=== PATIENT | male | born 1965 | race Caucasian/White ===

== ENCOUNTER 2016-09-28 09:38 | Emergency (ER) | payer OTHER ==
[2016-09-28 09:50] VITALS: BP 102/56; PULSE 87; TEMP 97.9; BMI 40.3
--- NOTE | 2016-09-28 10:46 | PDOC ---
History of Present Illness - General Chief Complaint: Pain Stated Complaint: PAIN Time Seen by Provider: 09/28/16 10:45 History Source: Patient Exam Limitations: No Limitations - History of Present Illness Initial Comments: CHIEF COMPLAINT: 51 y/o afebrile male with PMH NIDDM, peripheral neuropathy, 3 left hip replacements c/o left hip pain since yesterday. HISTORY OF PRESENT ILLNESS: The patient states he was the passenger in a car for a few hours yesterday. Last night he had some hip pain for which he took Vicodin which didn't help. Today he woke up with worsened pain and is concerned there is a problem with his hip replacement. He states he cannot move his left leg nor walk. He denies fall, trauma to area, numbness/tingling in his left LE. Vital signs on arrival are within normal limits. REVIEW OF SYSTEMS: GENERAL/CONSTITUTIONAL: No fever/chills. No weakness. No weight change. HEAD, EYES, EARS, NOSE AND THROAT: No change in vision. No ear pain or discharge. No sore throat. CARDIOVASCULAR: No chest pain or shortness of breath. RESPIRATORY: No cough, wheezing, or hemoptysis. GASTROINTESTINAL: No abd pain, nausea, vomiting, diarrhea. GENITOURINARY: No dysuria, frequency, or change in urination. MUSCULOSKELETAL: +left hip pain. No neck or back pain. SKIN: No rash or easy bruising. NEUROLOGIC: No headache, vertigo, loss of consciousness, or loss of sensation. PHYSICAL EXAM: GENERAL: The patient is awake, alert, and fully oriented, in no acute distress. He is wheeled in a wheelchair. HEAD: Normal with no signs of trauma. BACK: No midline lumbar spine TTP or step offs. Pain with palpation of left buttock/piriformis region. EXTREMITIES: Pt refuses left leg ranging. NEUROLOGICAL: Normal speech. Gait not assessed in the ER. CN II-XII grossly intact. No pain with palpation of left greater trochanter. No apparent leg leg discrepancy. PSYCH: Normal mood, normal affect. SKIN: Warm, dry, normal turgor, no rashes or lesions noted. Past History - Past Medical History Allergies/Adverse Reactions: Allergies Allergy/AdvReac Type Severity Reaction Status Date / Time No Known Drug Allergies Allergy Verified 09/28/16 09:45 Home Medications: Ambulatory Orders Zolpidem Tartrate [Ambien] 10 mg PO HS PRN 04/02/12 Gabapentin [Neurontin] 300 mg PO TID 08/03/13 Glipizide 5 mg PO BID 08/03/13 Metformin HCl [Glucophage] 1,000 mg PO BID 08/03/13 Sertraline HCl [Zoloft -] 100 mg PO DAILY 08/03/13 Cyclobenzaprine HCl [Flexeril -] 10 mg PO TID #21 tablet 07/15/15 Ibuprofen [Motrin -] 600 mg PO QID #28 tablet 09/23/15 COPD: (H/O SLEEP APNEA-SX) Diabetes: Yes HTN: Yes Hypercholesterolemia: Yes Psychiatric Problems: Yes (ANXIETY) - Surgical History Abdominal Surgery: Yes (abd hernia) Cardiac Surgery: Yes (no stent angio) Orthopedic Surgery: Yes (HIP REPLACEMENT LTX3) - Immunization History Immunization Up to Date: Yes - Psycho/Social/Smoking Cessation Hx Anxiety: No Suicidal Ideation: No Smoking Status: No Smoking History: Current some day smoker Have you smoked in the past 12 months: Yes Number of Cigarettes Smoked Daily: 0 Cigars Per Day: 1 Information on smoking cessation initiated: Yes 'Breaking Loose' booklet given: 09/28/16 Hx Alcohol Use: No Drug/Substance Use Hx: No Substance Use Type: None Hx Substance Use Treatment: No *Physical Exam - Vital Signs Last Vital Signs Temp Pulse Resp BP Pulse Ox 97.9 F 87 18 102/56 100 09/28/16 09:47 09/28/16 09:47 09/28/16 09:47 09/28/16 09:47 09/28/16 09:47 Medical Decision Making - Medical Decision Making A/P: 51 y/o afebrile male with left hip pain s/p long car ride yesterday. Suspect sciatica/piriformis syndrome. However, given his history will send for hip xray. Will give PO ibuprofen and valium in FT. Left hip/pelvis xray IMPRESSION: No acute fracture. No change since prior study. The patient was given his results. He states the medication made no difference to his pain. Will give crutches and suggested he continue taking his narcotic pain medication at home and add Motrin. Instructed him to call Dr. Beltre for a physical therapy prescription and his orthopedic doctor for a follow up appointment as soon as possible. Demonstrated some stretches and suggested he perform them hourly at home until he gets to physical therapy. Instructed him to return to the ER immediately with any worsening or concerning symptoms. The patient verbalizes understanding of all instructions, has no further questions and is awaiting discharge. *DC/Admit/Observation/Transfer Diagnosis at time of Disposition: Hip pain, left Sciatica Qualifiers: Laterality: left Qualified Code(s): M54.32 - Sciatica, left side Piriformis syndrome Qualifiers: Laterality: left Qualified Code(s): G57.02 - Lesion of sciatic nerve, left lower limb - Discharge Dispostion Disposition: HOME Condition at time of disposition: Good - Referrals Referrals: Elver Beltre MD [Primary Care Provider] - (Call today for physical therapy prescription) - Patient Instructions Printed Discharge Instructions: DI for Sciatica, How To Perform RICE (Rest, Ice , Compress, Elevate), How to Use Crutches Additional Instructions: Discharge Instructions: -Use crutches for comfort -The xrays of your hip did not show any breaks or problems with your hip replacement -Please continue taking your pain medication at home as you normally would; Add motrin to help with pain -Call Dr. Beltre and your Orthopedic doctor today for prescriptions for Physical Therapy and an MRI. -Return to the ER with any worsening or concerning symptoms
[2016-09-28] MEDS ORDERED: diazePAM 5 MG TABLET PO ONE (10:52)
[2016-09-28] MEDS ORDERED: IBUPROFEN 400 MG TABLET (FP) PO ONE ×2 (10:52→10:54)
[2016-09-28] MEDS ORDERED: diazePAM 5 MG TABLET ONE (10:55)
== END 2016-09-28 12:51 | disposition home or self-care (01) ==
LOC: JERFT 09:38
DX: M54.32 Sciatica, left side (principal); G57.02 Lesion of sciatic nerve, left lower limb; E11.42 Type 2 diabetes mellitus with diabetic polyneuropathy; Z79.84 Long term (current) use of oral hypoglycemic drugs; I10 Essential (primary) hypertension; E78.00 Pure hypercholesterolemia, unspecified
CPT/HCPCS: 73523-TC; 99281-25

== ENCOUNTER 2017-07-25 14:30 | Emergency (ER) | payer OTHER ==
[2017-07-25 14:51] VITALS: BP 150/80; PULSE 95; TEMP 97; BMI 36.3
--- NOTE | 2017-07-25 15:41 | PDOC ---
Suture Removal/Wound Check HPI - History of Present Illness Chief Complaint: Injury Stated Complaint: LACERATION Time Seen by Provider: 07/25/17 15:05 History Source: Yes: Patient Exam Limitations: Yes: No Limitations (R index finger laceration sustained with a knife while washing dishes, UTD with tetanus) Past History - Travel Traveled outside of the country in the last 30 days: No Close contact w/someone who was outside of country & ill: No - Past Medical History Allergies/Adverse Reactions: Allergies Allergy/AdvReac Type Severity Reaction Status Date / Time No Known Drug Allergies Allergy Verified 07/25/17 14:49 Home Medications: Ambulatory Orders Zolpidem Tartrate [Ambien] 10 mg PO HS PRN 04/02/12 Gabapentin [Neurontin] 300 mg PO TID 08/03/13 Glipizide 5 mg PO BID 08/03/13 Metformin HCl [Glucophage] 1,000 mg PO BID 08/03/13 Sertraline HCl [Zoloft -] 100 mg PO DAILY 08/03/13 COPD: No (H/O SLEEP APNEA-SX) Diabetes: Yes HTN: Yes Hypercholesterolemia: Yes Psychiatric Problems: Yes (ANXIETY) - Surgical History Abdominal Surgery: Yes (abd hernia) Cardiac Surgery: Yes (no stent angio) Orthopedic Surgery: Yes (HIP REPLACEMENT LTX3) - Immunization History Immunization Up to Date: Yes - Suicide/Smoking/Psychosocial Hx Smoking Status: No Smoking History: Never smoked Have you smoked in the past 12 months: Yes Number of Cigarettes Smoked Daily: 0 Cigars Per Day: 1 Information on smoking cessation initiated: No 'Breaking Loose' booklet given: 09/28/16 Hx Alcohol Use: No Drug/Substance Use Hx: No Substance Use Type: None Hx Substance Use Treatment: No Suture Removal/Wound Check PE - Physical Exam Laceration/Wound Check Symptoms: denies: Numbness, Weakness Location of Laceration/Wound: right: Finger (R index finger) *Review of Systems - Review of Systems Integumentary: Yes: Other (R index finger laceration) Neurological: No: Numbness Procedures - Laceration/Wound Repair Right Upper Hand 2nd digit Wound Length: to 2.5 cm Wound Explored: clean, no foreign body present Wound's Depth, Shape: superficial, flap Irrigated w/ Saline: Yes Betadine Prep: Yes Wound Repaired With: Dermabond Sterile Dressing Applied: Yes Medical Decision Making - Medical Decision Making 07/25/17 15:42 52y/o M with h/o DM, R hand dominant p/w R index finger laceration sustained 5hrs [employer] while washing dishes. PT reports he cut it with a knift, UTD wth tetanus. No finger weakness or loss of sensation plan: PE consistent with flap superficial laceration, FROM. skin closed with dermabond wound dressed s/s of infection discussed keep area dry *DC/Admit/Observation/Transfer Diagnosis at time of Disposition: Laceration - Discharge Dispostion Disposition: HOME Condition at time of disposition: Stable Admit: No - Referrals Referrals: Elver Beltre MD [Primary Care Provider] - - Patient Instructions Printed Discharge Instructions: DI for Laceration Repair With Dermabond Additional Instructions: I discussed the physical exam findings, ancillary test results and final diagnoses with the patient. I answered all of the patient's questions. The patient was satisfied with the care received and felt comfortable with the discharge plan and treatment plan. The patient will call their primary care physician within 24 hours to arrange follow-up and will return to the Emergency Department with any new, persistant or worsening symptoms. - Post Discharge Activity
== END 2017-07-25 15:40 | disposition home or self-care (01) ==
LOC: JERFT 14:30 → JER 14:30 → JERFT 15:40
PROC: 0HQFXZZ Repair Right Hand Skin, External Approach (ICD-10-PCS; principal; 2017-07-25)
DX: S61.210A Laceration without foreign body of right index finger without damage to nail, initial encounter (principal); W26.0XXA Contact with knife, initial encounter; Y93.G1 Activity, food preparation and clean up; Y92.030 Kitchen in apartment as the place of occurrence of the external cause; Y99.8 Other external cause status; I10 Essential (primary) hypertension; Z98.61 Coronary angioplasty status; E11.9 Type 2 diabetes mellitus without complications; E78.00 Pure hypercholesterolemia, unspecified; G47.39 Other sleep apnea; F41.9 Anxiety disorder, unspecified; Z96.642 Presence of left artificial hip joint
CPT/HCPCS: 12011; 99281-25

== ENCOUNTER 2019-05-27 12:54 | Emergency (ER) | payer OTHER ==
[2019-05-27 13:26] VITALS: BP 118/68; PULSE 95; TEMP 98; BMI 37.1
[2019-05-27] MEDS ORDERED: KETOROLAC TROMETHAMINE 30 MG/1 ML VIAL IM ONE (13:41)
[2019-05-27] MEDS ORDERED: KETOROLAC TROMETHAMINE 30 MG/1 ML VIAL ONE (13:43)
--- NOTE | 2019-05-27 13:50 | PDOC ---
History of Present Illness - General Chief Complaint: Pain, Acute Stated Complaint: RT SHOULDER PAIN Time Seen by Provider: 05/27/19 13:34 History Source: Patient Exam Limitations: No Limitations - History of Present Illness Initial Comments: 05/27/19 13:45 Patient is a 54-year-old male who presents to the ED with complaint of right shoulder pain that started 2-3 weeks ago. The patient states that it got worse after he had a fall in his bedroom yesterday. He states he tripped and landed on an outstretched arm. He has difficulty raising his arm up above his head. He is having trouble reaching behind his back. He denies any numbness or tingling. The patient states that he is on chronic pain management for multiple orthopedic issues and takes 10 mg of oxycodone twice daily. He states he has been on the pain medication for a long time. He has not taken any anti- inflammatories for his shoulder pain. He has a history of diabetes but denies any allergies to medicines. Past History - Past Medical History Allergies/Adverse Reactions: Allergies Allergy/AdvReac Type Severity Reaction Status Date / Time No Known Drug Allergies Allergy Verified 05/27/19 13:26 Home Medications: Ambulatory Orders Zolpidem Tartrate [Ambien] 10 mg PO HS PRN 04/02/12 Gabapentin [Neurontin] 300 mg PO TID 08/03/13 Glipizide 5 mg PO BID 08/03/13 Metformin HCl [Glucophage] 1,000 mg PO BID 08/03/13 Sertraline HCl [Zoloft -] 100 mg PO DAILY 08/03/13 Ibuprofen [Motrin -] 600 mg PO TID PRN #21 tablet 05/27/19 COPD: No (H/O SLEEP APNEA-SX) Diabetes: Yes HTN: Yes Hypercholesterolemia: Yes Psychiatric Problems: Yes (ANXIETY) - Surgical History Abdominal Surgery: Yes (abd hernia) Cardiac Surgery: Yes (no stent angio) Orthopedic Surgery: Yes (HIP REPLACEMENT LTX3) - Immunization History Immunization Up to Date: Yes - Psycho Social/Smoking Cessation Hx Smoking Status: No Smoking History: Former smoker Have you smoked in the past 12 months: No Number of Cigarettes Smoked Daily: 0 Cigars Per Day: 1 Information on smoking cessation initiated: No 'Breaking Loose' booklet given: 09/28/16 Hx Alcohol Use: No Drug/Substance Use Hx: No Substance Use Type: None Hx Substance Use Treatment: No Review of Systems - Review of Systems Comments:: 05/27/19 13:47 - Review of Systems Able to Perform ROS?: Yes Constitutional: No: Fever, Chills, Loss of Appetite, Night Sweats, Weakness HEENTM: No: Eye Pain, Vision changes, Ear Pain, Throat Pain, Throat Swelling, Mouth Pain, Difficulty Swallowing Respiratory: No: Cough, Shortness of Breath, Wheezing, Sputum Production Cardiac (ROS): No: Chest Pain, Chest Tightness, Palpitations, Irregular Heart Beat, Edema ABD/GI: No: Nausea, Vomiting, Abdominal Pain, Diarrhea Musculoskeletal: No: Muscle Pain, Back Pain, Muscle Weakness, Neck Pain; Positive R shoulder pain Integumentary: No: Lesions, Rash Neurological: No: Headache, Numbness, Tingling, Weakness, Speech Difficulties *Physical Exam - Vital Signs Last Vital Signs Temp Pulse Resp BP Pulse Ox 98.0 F 95 H 16 118/68 100 05/27/19 13:23 05/27/19 13:23 05/27/19 13:23 05/27/19 13:23 05/27/19 13:23 - Physical Exam 05/27/19 13:48 - Physical Exam General Appearance: Nourished, Appropriately Dressed, No Distress Neck: Supple, No Lymphadenopathy (R), No Lymphadenopathy (L), No Rigidity, No Decreased range of motion Respiratory/Chest: Lungs Clear, Normal Breath Sounds. No Respiratory Distress, No Accessory Muscle Use Cardiovascular: Regular Rhythm, Regular Rate, S1, S2 Musculoskeletal: Normal Inspection. Right shoulder with no significant reproducible tenderness to palpation. No step-off. Forward flexion to 45 degrees actively. Internal rotation to the right hip. Passive forward flexion to 110 degrees actively. Extremity: Normal Capillary Refill, Normal Inspection Integumentary: Normal Color, Dry. No Rash Neurologic: water pumper II-XII NML intact, Fully Oriented, Alert, Normal Mood/Affect, Normal Response ED Treatment Course - RADIOLOGY Radiology Studies Ordered: Category Date Time Status SHOULDER-RIGHT [RAD] Stat Radiology 05/27/19 13:41 Ordered - Medications Given in the ED: ED Medications Discontinued Medications Generic Name Dose Route Start Last Admin Trade Name Freq PRN Reason Stop Dose Admin Ketorolac Tromethamine 30 mg 05/27/19 13:41 05/27/19 13:42 Toradol Injection - IM 05/27/19 13:42 30 mg ONCE ONE Administration Medical Decision Making - Medical Decision Making 05/27/19 13:49 Assessment: Patient is a 54-year-old male with right shoulder pain. Plan: -Right shoulder x-ray ordered to rule out fracture -Toradol IM ordered -Will reassess 05/27/19 14:39 Patient's x-ray is read as no acute pathology. He does have significant AC OA with osteophytic bone spurring appreciated. There is a sclerotic lesion appreciated at the medial aspect of the humeral head which should be further evaluated. I will give the patient orthopedic follow-up for further evaluation and treatment. He understands and agrees with this treatment plan and Motrin will be sent to his pharmacy. The patient is stable for discharge. Discharge - Discharge Information Problems reviewed: Yes Clinical Impression/Diagnosis: Right shoulder pain Qualifiers: Chronicity: acute Qualified Code(s): M25.511 - Pain in right shoulder Condition: Stable Disposition: HOME - Additional Discharge Information Prescriptions: Ibuprofen [Motrin -] 600 mg PO TID PRN #21 tablet PRN Reason: pain - Follow up/Referral Referrals: Elver Beltre MD [Primary Care Provider] - Eliezer Mckee MD [Staff Physician] - 1 week - Patient Discharge Instructions Patient Printed Discharge Instructions: DI for Shoulder Pain Additional Instructions: Ice your shoulder to help with pain and swelling. Take the Motrin as prescribed to help with pain and swelling but take with food. Follow-up with orthopedics within 1 to 2 weeks for repeat evaluation. You may benefit from a steroid injection in your shoulder for the pain and physical therapy. You may require an MRI for further evaluation. - Post Discharge Activity
== END 2019-05-27 14:47 | disposition home or self-care (01) ==
LOC: JER 12:54 → JERFT 12:54
PROC: 3E0233Z Introduction of Anti-inflammatory into Muscle, Percutaneous Approach (ICD-10-PCS; principal; 2019-05-27)
DX: M25.511 Pain in right shoulder (principal); I10 Essential (primary) hypertension; E78.00 Pure hypercholesterolemia, unspecified; E11.9 Type 2 diabetes mellitus without complications; Z79.84 Long term (current) use of oral hypoglycemic drugs; F41.9 Anxiety disorder, unspecified; Z98.61 Coronary angioplasty status
CPT/HCPCS: 73030-TC-RT-FY; 96372; 99284-25

== ENCOUNTER 2020-07-30 15:44 | Observation (INO) | payer OTHER ==
[2020-07-30] MEDS ORDERED: SODIUM CHLORIDE 1,000 ML IV STA (17:53)
[2020-07-30] MEDS ORDERED: ATORVASTATIN CA 80 MG TABLET (FP) PO ONE (18:39)
[2020-07-30] MEDS ORDERED: ASPIRIN 325 MG TABLET PO ONE (18:39)
[2020-07-30 18:42] LABS: BASO % 0.9 % (0-2.0); EOS % 1.7 % (0-4.5); HEMATOCRIT 38.4 % (35.4-49); HEMOGLOBIN 13.2 GM/dL (11.7-16.9); LYMPH % 23.5 % (8-40); MCH 28.9 pg (25.7-33.7); MCHC 34.3 g/dl (32.0-35.9); MEAN CELL VOLUME 84.2 fl (80-96); MEAN PLT VOLUME 7.9 fl (7.5-11.1); MONO % 12.2 % (3.8-10.2); NEUT % 61.7 % (42.8-82.8); PLATELET COUNT 217 K/MM3 (134-434); RBC 4.56 M/mm3 (4.00-5.60); RDW 13.4 % (11.9-15.9); WHITE BLOOD COUNT 6.9 K/mm3 (4.0-10.0)
[2020-07-30 19:00] LABS: CHLORIDE 102 mmol/L (98-107); SODIUM 136 mmol/L (136-145)
[2020-07-30 19:03] LABS: ALBUMIN 3.9 g/dl (3.4-5.0); ANION GAP 6 MMOL/L (8-16); BLOOD UREA NITROGEN 16.9 mg/dL (7-18); CALCIUM 9.6 mg/dL (8.5-10.1); CO2 28 mmol/L (21-32); GLUCOSE,RANDOM 118 mg/dL (74-106); MAGNESIUM 1.9 mg/dL (1.8-2.4)
[2020-07-30 19:06] LABS: CHOLESTEROL 113 mg/dL (50-200); CREATININE 1.1 mg/dL (0.55-1.3); PHOSPHOROUS 3.8 mg/dL (2.5-4.9); SGOT/AST 13 U/L (15-37); SGPT/ALT 32 U/L (13-61); TRIGLYCERIDES 61 mg/dL (0-150)
[2020-07-30 19:07] LABS: BILIRUBIN,TOTAL 0.9 mg/dL (0.2-1); LDL CHOLESTEROL (ONLY SJRH) 40 mg/dL (5-100); TOT PROT 6.8 g/dl (6.4-8.2)
[2020-07-30 19:08] LABS: ALK PHOS 73 U/L (45-117)
[2020-07-30 19:09] LABS: HDL CHOLESTEROL 63 mg/dL (40-60)
[2020-07-30] MEDS ORDERED: ATORVASTATIN CA 80 MG TABLET (FP) ONE (19:53)
[2020-07-30] MEDS ORDERED: ACETAMINOPHEN 1000 MG/100 ML VIAL (NON FORMULARY) IVPB ONE ×2 (19:59→20:11)
[2020-07-30] MEDS ORDERED: ACETAMINOPHEN 500 MG TABLET (FP) PO ONE (20:06)
[2020-07-30] MEDS ORDERED: ACETAMINOPHEN INJECTION 100 ML IVPB ONE (20:11)
[2020-07-30 22:27] LABS: PH,URINE 6.5 (5.0-8.0); URINE APPEARANCE CLEAR; URINE BILIRUBIN NEGATIVE (NEGATIVE); URINE COLOR YELLOW; URINE GLUCOSE (UA) NEGATIVE (NEGATIVE); URINE KETONE NEGATIVE (NEGATIVE); URINE LEUK ESTERASE NEGATIVE (NEGATIVE); URINE NITRITE NEGATIVE (NEGATIVE); URINE PROTEIN NEGATIVE (NEGATIVE); URINE UROBILINOGEN 0.2 mg/dL (0.2-1.0)
[2020-07-31] MEDS ORDERED: QUEtiapine FUMARATE 100 MG TABLET (FP) PO SCH (00:01)
[2020-07-31] MEDS ORDERED: traZODone HCL 100 MG TABLET (FP) PO SCH ×2 (00:01→22:00)
[2020-07-31] MEDS ORDERED: ATORVASTATIN CA 80 MG TABLET (FP) ONE (00:19)
[2020-07-31] MEDS ORDERED: QUEtiapine FUMARATE 100 MG TABLET (FP) ONE (00:20)
[2020-07-31] MEDS ORDERED: MELATONIN 5 MG TABLETS PO PRN (00:30)
[2020-07-31] MEDS ORDERED: oxyCODONE HCL 5 MG TABLET PO PRN (01:26)
[2020-07-31] MEDS ORDERED: ACETAMINOPHEN 325 MG TABLET (FP) PO PRN ×2 (01:26→01:28)
[2020-07-31] MEDS: LORazepam 1 MG TABLET PO PRN ×2 (02:00→10:15)
[2020-07-31 03:34] VITALS: BMI 29.0
[2020-07-31 07:01] LABS: BASO % 0.5 % (0-2.0); EOS % 2.9 % (0-4.5); HEMATOCRIT 37.1 % (35.4-49); LYMPH % 25.3 % (8-40); MCH 29.3 pg (25.7-33.7); MEAN CELL VOLUME 83.7 fl (80-96); MEAN PLT VOLUME 7.7 fl (7.5-11.1); MONO % 12.8 % (3.8-10.2); NEUT % 58.5 % (42.8-82.8); PLATELET COUNT 193 K/MM3 (134-434); RBC 4.43 M/mm3 (4.00-5.60); RDW 13.5 % (11.9-15.9); WHITE BLOOD COUNT 5.5 K/mm3 (4.0-10.0)
[2020-07-31 07:15] LABS: ALBUMIN 3.8 g/dl (3.4-5.0); CALCIUM 9.4 mg/dL (8.5-10.1)
[2020-07-31 07:16] LABS: BLOOD UREA NITROGEN 13.8 mg/dL (7-18); MAGNESIUM 1.8 mg/dL (1.8-2.4)
[2020-07-31 07:19] LABS: PHOSPHOROUS 3.9 mg/dL (2.5-4.9)
[2020-07-31 07:20] LABS: BILIRUBIN,TOTAL 1.4 mg/dL (0.2-1); TOT PROT 6.2 g/dl (6.4-8.2)
[2020-07-31] MEDS ORDERED: ENOXAPARIN NA (PORCINE) 40 MG/0.4 ML DISP.SYRIN SQ SCH (10:00)
[2020-07-31] MEDS ORDERED: BUPROPION HCL 450 MG PO SCH (10:00)
[2020-07-31] MEDS ORDERED: ASPIRIN COATED 81 MG TABLET.EC PO SCH (10:00)
[2020-07-31] MEDS ORDERED: LISINOPRIL 5 MG TABLET PO SCH (10:00)
[2020-07-31] MEDS ORDERED: GABAPENTIN 300 MG CAPSULE PO SCH (14:00)
[2020-07-31 14:05] VITALS: BP 123/62; PULSE 97; TEMP 98.4
[2020-07-31] MEDS ORDERED: ATORVASTATIN CA 80 MG TABLET (FP) PO SCH (22:00)
[2020-07-31] MEDS ORDERED: QUEtiapine FUMARATE 50 MG TABLET PO SCH (22:00)
[2020-08-01] MEDS ORDERED: DULoxetine HCL 30 MG CAPSULE.DR PO SCH (10:00)
== END 2020-07-31 17:57 | disposition home or self-care (01) | DRG 312 ==
LOC: JER 15:44 → UNDOADMOB 20:27 → INTOOBSV 20:27 → JERBED 20:27 → J4W 07-31 00:59 → JERBED 07-31 09:57 → J4W 07-31 09:57 → OBSVTOIN 07-31 17:25 → INTOOBSV 07-31 17:25
PROVIDERS: ADMIT Hospitalist; ATTEND Nurse Practitioner Acute Care
DX: R55 Syncope and collapse (principal); F32.9 Major depressive disorder, single episode, unspecified; F41.9 Anxiety disorder, unspecified; E11.9 Type 2 diabetes mellitus without complications; M54.5 Low back pain; Z79.84 Long term (current) use of oral hypoglycemic drugs; G47.00 Insomnia, unspecified; E78.5 Hyperlipidemia, unspecified; G89.29 Other chronic pain; Z20.822 Contact with and (suspected) exposure to COVID-19
CPT/HCPCS: 36415; 70450-TC; 70551-TC; 71045-TC-FY; 72170-TC-FY; 73562-TC-LT-FY; 73562-TC-RT-FY; 80053; 80061; 81003; 82550; 83036; 83721; 83735; 84100; 84436; 84443; 84484; 85025; 93005; 93010; 93306-TC; 93880-TC; 99285-25; C9803; G0378; J0131; U0003; U0005

== ENCOUNTER 2020-08-10 09:59 | Emergency (ER) | payer OTHER ==
[2020-08-10 10:12] VITALS: TEMP 98; BMI 27.4
[2020-08-10 11:48] LABS: BASO % 0.7 % (0-2.0); HEMATOCRIT 38.6 % (35.4-49); HEMOGLOBIN 13.6 GM/dL (11.7-16.9); LYMPH % 17.8 % (8-40); MCH 29.9 pg (25.7-33.7); MCHC 35.3 g/dl (32.0-35.9); MEAN CELL VOLUME 84.6 fl (80-96); MEAN PLT VOLUME 7.6 fl (7.5-11.1); MONO % 9.8 % (3.8-10.2); NEUT % 68.7 % (42.8-82.8); PLATELET COUNT 234 K/MM3 (134-434); RBC 4.56 M/mm3 (4.00-5.60); RDW 14.4 % (11.9-15.9); WHITE BLOOD COUNT 6.4 K/mm3 (4.0-10.0)
[2020-08-10 11:49] LABS: ALBUMIN 3.8 g/dl (3.4-5.0); BLOOD UREA NITROGEN 15.8 mg/dL (7-18); CALCIUM 8.7 mg/dL (8.5-10.1)
[2020-08-10 11:54] LABS: BILIRUBIN,TOTAL 0.7 mg/dL (0.2-1); TOT PROT 6.6 g/dl (6.4-8.2)
[2020-08-10 12:24] LABS: EPI CELLS 4 /uL (0-25.1); HYALINE CASTS 0 /uL (0-3.1); PH,URINE 6.5 (5.0-8.0); URINE APPEARANCE CLOUDY; URINE BACTERIA 11 /uL (0-1359); URINE BILIRUBIN NEGATIVE (NEGATIVE); URINE COLOR ORANGE; URINE GLUCOSE (UA) 3+ (NEGATIVE); URINE KETONE NEGATIVE (NEGATIVE); URINE LEUK ESTERASE TRACE (NEGATIVE); URINE NITRITE NEGATIVE (NEGATIVE); URINE PROTEIN 2+ (NEGATIVE); URINE RBC 13585 /uL (0-23.9); URINE UROBILINOGEN 0.2 mg/dL (0.2-1.0); URINE WBC 30 /uL (0-25.8)
[2020-08-10] MEDS ORDERED: SODIUM CHLORIDE 0.9% 500 ML INFUS.BAG IV ONE (13:15)
[2020-08-10 14:26] LABS: INR 0.96 (0.83-1.09); PROTHROMBIN TIME (PATIENT) 11.6 SEC (9.7-13.0)
[2020-08-10] MEDS ORDERED: morphine CARPU-JECT 2 MG/1 ML DISP.SYRIN IVPUSH ONE (14:42)
[2020-08-10] MEDS ORDERED: KETOROLAC TROMETHAMINE 30 MG/1 ML VIAL IVPUSH ONE (14:42)
[2020-08-10] MEDS ORDERED: KETOROLAC TROMETHAMINE 30 MG/1 ML VIAL ONE (14:57)
[2020-08-10] MEDS ORDERED: MORPHINE SULFATE 2 MG/ML VIAL ONE (14:57)
[2020-08-10 16:11] VITALS: BP 118/78; PULSE 79
== END 2020-08-10 16:33 | disposition home or self-care (01) ==
LOC: JER 09:59
PROC: 3E0333Z Introduction of Anti-inflammatory into Peripheral Vein, Percutaneous Approach (ICD-10-PCS; principal; 2020-08-10)
PROC: 3E033NZ Introduction of Analgesics, Hypnotics, Sedatives into Peripheral Vein, Percutaneous Approach (ICD-10-PCS; 2020-08-10)
DX: R33.9 Retention of urine, unspecified (principal)
CPT/HCPCS: 36415; 76775-TC; 76856-TC; 80053; 81003; 82550; 82962; 85025; 85610; 87086; 99285-25

== ENCOUNTER 2020-08-13 22:22 | Inpatient (IN) | payer OTHER ==
[2020-08-13] MEDS ORDERED: ACETAMINOPHEN 1000 MG/100 ML VIAL (NON FORMULARY) IVPB ONE (22:46)
[2020-08-13] MEDS ORDERED: morphine CARPU-JECT 4 MG/1 ML DISP.SYRIN IVPUSH ONE (22:46)
[2020-08-13] MEDS ORDERED: ACETAMINOPHEN INJECTION 100 ML IVPB ONE (22:57)
[2020-08-13] MEDS ORDERED: morphine SULFATE 4 MG/ML VIAL ONE (22:57)
[2020-08-13 23:17] LABS: HEMATOCRIT 38.3 % (35.4-49); HEMOGLOBIN 13.1 GM/dL (11.7-16.9); MCH 28.7 pg (25.7-33.7); MCHC 34.2 g/dl (32.0-35.9); MEAN CELL VOLUME 83.9 fl (80-96); MEAN PLT VOLUME 7.6 fl (7.5-11.1); PLATELET COUNT 252 K/MM3 (134-434); RBC 4.56 M/mm3 (4.00-5.60); RDW 14.3 % (11.9-15.9); WHITE BLOOD COUNT 12.1 K/mm3 (4.0-10.0)
[2020-08-13] MEDS ORDERED: LIDOCAINE HCL 2% JELLY 10 ML CARTRIDGE ONE (23:18)
[2020-08-13 23:27] LABS: INR 0.92 (0.83-1.09); PROTHROMBIN TIME (PATIENT) 11.4 SEC (9.7-13.0)
[2020-08-13 23:30] LABS: ACTIVATED PTT 33.3 SECONDS (25.2-36.5)
[2020-08-13 23:38] LABS: CALCIUM 8.7 mg/dL (8.5-10.1)
[2020-08-13 23:39] LABS: ALBUMIN 4.1 g/dl (3.4-5.0); BLOOD UREA NITROGEN 19.1 mg/dL (7-18)
[2020-08-13 23:44] LABS: BILIRUBIN,TOTAL 0.8 mg/dL (0.2-1); TOT PROT 6.5 g/dl (6.4-8.2)
[2020-08-13 23:47] LABS: EPI CELLS >36 /uL (0-25.1); HYALINE CASTS 33 /uL (0-3.1); URINE APPEARANCE TURBID; URINE BILIRUBIN 2+ (NEGATIVE); URINE COLOR RED; URINE GLUCOSE (UA) TRACE (NEGATIVE); URINE KETONE Error (NEGATIVE); URINE LEUK ESTERASE 2+ (NEGATIVE); URINE NITRITE POSITIVE (NEGATIVE); URINE PROTEIN 2+ (NEGATIVE); URINE RBC 277 /uL (0-23.9); URINE UROBILINOGEN 0.2 mg/dL (0.2-1.0); URINE WBC 53 /uL (0-25.8)
[2020-08-13 23:56] LABS: URINE BACTERIA 282.9 /uL (0-1359)
[2020-08-14] MEDS ORDERED: HYDROmorphone HCL CARPU-JECT 2 MG/1 ML DISP.SYRIN IVPUSH ONE (00:01)
[2020-08-14] MEDS ORDERED: HYDROmorphone HCl 2 MG/ML VIAL ONE (00:06)
[2020-08-14] MEDS ORDERED: MELATONIN 5 MG TABLETS PO ONE (02:08)
[2020-08-14] MEDS ORDERED: ACETAMINOPHEN 1000 MG/100 ML VIAL (NON FORMULARY) IVPB SCH (02:15)
[2020-08-14] MEDS ORDERED: HYDROmorphone HCL CARPU-JECT 2 MG/1 ML DISP.SYRIN IVPUSH SCH (02:15)
[2020-08-14] MEDS: HYDROmorphone HCl 2 MG/ML VIAL IVPUSH PRN ×4 (02:24→20:33)
[2020-08-14 03:17] VITALS: BMI 30.7
[2020-08-14] MEDS: ACETAMINOPHEN 1000 MG/100 ML VIAL (NON FORMULARY) IVPB PRN ×2 (04:30→08:43)
[2020-08-14 04:32] LABS: HEMATOCRIT 32.5 % (35.4-49); HEMOGLOBIN 11.1 GM/dL (11.7-16.9); MCH 28.9 pg (25.7-33.7); MCHC 34.1 g/dl (32.0-35.9); MEAN CELL VOLUME 84.7 fl (80-96); MEAN PLT VOLUME 7.5 fl (7.5-11.1); PLATELET COUNT 191 K/MM3 (134-434); RBC 3.84 M/mm3 (4.00-5.60); WHITE BLOOD COUNT 9.2 K/mm3 (4.0-10.0)
[2020-08-14 05:05] LABS: CALCIUM 7.9 mg/dL (8.5-10.1)
[2020-08-14 05:06] LABS: BLOOD UREA NITROGEN 16.5 mg/dL (7-18)
[2020-08-14 05:09] LABS: CREATININE 0.9 mg/dL (0.55-1.3)
[2020-08-14 05:11] LABS: BILIRUBIN,TOTAL 0.7 mg/dL (0.2-1); TOT PROT 5.3 g/dl (6.4-8.2)
[2020-08-14 05:35] LABS: ALBUMIN 3.2 g/dl (3.4-5.0)
[2020-08-14] MEDS: INSULIN SLIDING SCALE (NOVOLOG) 1 VIAL SQ SCH ×4 (06:16→21:15)
[2020-08-14] MEDS ORDERED: DEXTROSE 5%-WATER - 50 ML IVPB ONE (10:24)
[2020-08-14] MEDS ORDERED: cefTRIAXone SODIUM 1 GM VIAL ONE (10:24)
[2020-08-14] MEDS: CEFTRIAXONE 1 GM in DEXTROSE 5%-WATER - 50 ML IVPB SCH (10:43)
[2020-08-14] MEDS: DOCUSATE SODIUM 100 MG CAPSULE (FP) PO SCH (10:43)
[2020-08-14] MEDS: LISINOPRIL 5 MG TABLET PO SCH (16:30)
[2020-08-14] MEDS: oxyCODONE HCL 5 MG TABLET PO PRN (16:45)
[2020-08-14] MEDS: ACETAMINOPHEN 325 MG TABLET (FP) PO PRN (17:27)
[2020-08-14] MEDS: DULoxetine HCL 30 MG CAPSULE.DR PO SCH (17:28)
[2020-08-14] MEDS: CARBAMIDE PEROXIDE 6.5% OTIC 15 ML BOTTLE AD SCH (17:29)
[2020-08-14] MEDS: NEOMYCIN/POLYMYXN/HC OTIC SOLUTION 10 ML BOTTLE AD SCH ×3 (17:29→21:21)
[2020-08-14] MEDS ORDERED: ONDANSETRON 4 MG/2 ML VIAL IVPUSH PRN (20:18)
[2020-08-14] MEDS: ROSUVASTATIN CA 20 MG TABLET (FP) PO SCH (21:14)
[2020-08-14] MEDS: QUEtiapine FUMARATE 200 MG TABLET PO SCH (21:14)
[2020-08-14] MEDS: traZODone HCL 100 MG TABLET (FP) PO SCH (21:14)
[2020-08-14] MEDS: MELATONIN 5 MG TABLETS PO PRN (21:14)
[2020-08-14] MEDS ORDERED: MELATONIN 5 MG TABLETS PO SCH (22:00)
[2020-08-15] MEDS: HYDROmorphone HCl 2 MG/ML VIAL IVPUSH PRN ×2 (04:10→10:55)
[2020-08-15] MEDS: INSULIN SLIDING SCALE (NOVOLOG) 1 VIAL SQ SCH ×4 (06:24→21:26)
[2020-08-15] MEDS ORDERED: DEXTROSE 5%-WATER - 50 ML IVPB ONE (09:04)
[2020-08-15] MEDS ORDERED: cefTRIAXone SODIUM 1 GM VIAL ONE (09:04)
[2020-08-15] MEDS: CEFTRIAXONE 1 GM in DEXTROSE 5%-WATER - 50 ML IVPB SCH (09:12)
[2020-08-15] MEDS: LISINOPRIL 5 MG TABLET PO SCH (09:13)
[2020-08-15] MEDS: TAMSULOSIN HCL 0.4 MG CAP PO SCH (09:13)
[2020-08-15] MEDS: DOCUSATE SODIUM 100 MG CAPSULE (FP) PO SCH (09:13)
[2020-08-15] MEDS: NEOMYCIN/POLYMYXN/HC OTIC SOLUTION 10 ML BOTTLE AD SCH ×3 (09:14→23:12)
[2020-08-15] MEDS ORDERED: PT OWN MED DRAWER 7, Y5N ONE (09:16)
[2020-08-15] MEDS: DULoxetine HCL 30 MG CAPSULE.DR PO SCH (09:18)
[2020-08-15] MEDS: CARBAMIDE PEROXIDE 6.5% OTIC 15 ML BOTTLE AD SCH (09:18)
[2020-08-15] MEDS: CEFPODOXIME PROXETIL 100 MG TABLET PO SCH ×2 (15:22→21:11)
[2020-08-15] MEDS: oxyCODONE HCL 5 MG TABLET PO PRN (20:53)
[2020-08-15] MEDS: QUEtiapine FUMARATE 200 MG TABLET PO SCH ×2 (21:06→21:27)
[2020-08-15] MEDS: traZODone HCL 100 MG TABLET (FP) PO SCH (21:07)
[2020-08-15] MEDS: ROSUVASTATIN CA 20 MG TABLET (FP) PO SCH (21:07)
[2020-08-15] MEDS: MELATONIN 5 MG TABLETS PO PRN (21:08)
[2020-08-16] MEDS: ACETAMINOPHEN 325 MG TABLET (FP) PO PRN (00:54)
[2020-08-16] MEDS: INSULIN SLIDING SCALE (NOVOLOG) 1 VIAL SQ SCH ×4 (06:00→21:24)
[2020-08-16 08:15] LABS: HEMATOCRIT 31.8 % (35.4-49); HEMOGLOBIN 11.3 GM/dL (11.7-16.9); MCH 29.7 pg (25.7-33.7); MCHC 35.6 g/dl (32.0-35.9); MEAN CELL VOLUME 83.5 fl (80-96); MEAN PLT VOLUME 7.4 fl (7.5-11.1); PLATELET COUNT 154 K/MM3 (134-434); RBC 3.81 M/mm3 (4.00-5.60); RDW 13.9 % (11.9-15.9); WHITE BLOOD COUNT 5.2 K/mm3 (4.0-10.0)
[2020-08-16] MEDS ORDERED: PT OWN MED DRAWER 7, Y5N ONE ×2 (09:31→21:20)
[2020-08-16] MEDS: TAMSULOSIN HCL 0.4 MG CAP PO SCH (10:06)
[2020-08-16] MEDS: DOCUSATE SODIUM 100 MG CAPSULE (FP) PO SCH (10:06)
[2020-08-16] MEDS: DULoxetine HCL 30 MG CAPSULE.DR PO SCH (10:06)
[2020-08-16] MEDS: LISINOPRIL 5 MG TABLET PO SCH (10:06)
[2020-08-16] MEDS: NEOMYCIN/POLYMYXN/HC OTIC SOLUTION 10 ML BOTTLE AD SCH ×3 (10:07→22:00)
[2020-08-16] MEDS: CEFPODOXIME PROXETIL 100 MG TABLET PO SCH ×2 (10:07→21:22)
[2020-08-16] MEDS: CARBAMIDE PEROXIDE 6.5% OTIC 15 ML BOTTLE AD SCH (10:07)
[2020-08-16] MEDS: oxyCODONE HCL 5 MG TABLET PO PRN ×2 (13:33→20:07)
[2020-08-16] MEDS: HYDROmorphone HCl 2 MG/ML VIAL IVPUSH PRN (21:17)
[2020-08-16] MEDS: traZODone HCL 100 MG TABLET (FP) PO SCH (21:18)
[2020-08-16] MEDS: ROSUVASTATIN CA 20 MG TABLET (FP) PO SCH (21:18)
[2020-08-16] MEDS: MELATONIN 5 MG TABLETS PO PRN (21:19)
[2020-08-16] MEDS: QUEtiapine FUMARATE 200 MG TABLET PO SCH (21:19)
[2020-08-17] MEDS: HYDROmorphone HCl 2 MG/ML VIAL IVPUSH PRN (06:18)
[2020-08-17] MEDS: INSULIN SLIDING SCALE (NOVOLOG) 1 VIAL SQ SCH ×2 (06:24→11:51)
[2020-08-17] MEDS ORDERED: PT OWN MED DRAWER 7, Y5N ONE (09:07)
[2020-08-17] MEDS: CARBAMIDE PEROXIDE 6.5% OTIC 15 ML BOTTLE AD SCH (09:18)
[2020-08-17] MEDS: TAMSULOSIN HCL 0.4 MG CAP PO SCH (09:18)
[2020-08-17] MEDS: NEOMYCIN/POLYMYXN/HC OTIC SOLUTION 10 ML BOTTLE AD SCH (09:18)
[2020-08-17] MEDS: CEFPODOXIME PROXETIL 100 MG TABLET PO SCH (09:18)
[2020-08-17] MEDS: DULoxetine HCL 30 MG CAPSULE.DR PO SCH (09:18)
[2020-08-17] MEDS: DOCUSATE SODIUM 100 MG CAPSULE (FP) PO SCH (09:18)
[2020-08-17] MEDS: LISINOPRIL 5 MG TABLET PO SCH (09:18)
[2020-08-17] MEDS: oxyCODONE HCL 5 MG TABLET PO PRN ×2 (11:06→16:31)
[2020-08-17 15:41] VITALS: BP 107/53; PULSE 86; TEMP 99.5
== END 2020-08-17 17:44 | disposition home or self-care (01) | DRG 690 ==
LOC: JER 22:22 → JERBED 22:47 → J5S 08-14 02:14
PROVIDERS: ADMIT Hospitalist; ATTEND Internal Medicine
PROC: 0T9B70Z Drainage of Bladder with Drainage Device, Via Natural or Artificial Opening (ICD-10-PCS; principal; 2020-08-14)
DX: N39.0 Urinary tract infection, site not specified (principal); I10 Essential (primary) hypertension; R31.0 Gross hematuria; E11.65 Type 2 diabetes mellitus with hyperglycemia; F32.9 Major depressive disorder, single episode, unspecified; F41.9 Anxiety disorder, unspecified; G47.00 Insomnia, unspecified; G89.29 Other chronic pain; R00.0 Tachycardia, unspecified; Z86.73 Personal history of transient ischemic attack (TIA), and cerebral infarction without residual deficits; E78.5 Hyperlipidemia, unspecified; Z79.84 Long term (current) use of oral hypoglycemic drugs; B96.89 Other specified bacterial agents as the cause of diseases classified elsewhere
CPT/HCPCS: 36415; 74178-TC; 80053; 81003; 82962; 83036; 85027; 85610; 85730; 86850; 86900; 86901; 87086; 87186; 93005; 93010; 99285-25; C9803; J0131; U0003; U0005

== ENCOUNTER 2020-09-12 04:14 | Day surgery (SDC) | payer OTHER ==
[2020-09-11 19:57] VITALS: BMI 29.0
[2020-09-12] MEDS ORDERED: GENTAMICIN SO4 80 MG/2 ML VIAL ONE (07:29)
[2020-09-12] MEDS ORDERED: MIDAZOLAM HCL 2 MG/2 ML SINGLE DOSE VIAL ONE ×2 (07:33→07:52)
[2020-09-12] MEDS ORDERED: GENTAMICIN SO4 80 MG/2 ML VIAL IVPB ONE (07:40)
[2020-09-12] MEDS ORDERED: ceFAZolin 2 GRAM PREMIX BAG IVPB ONE (07:40)
[2020-09-12] MEDS ORDERED: ceFAZolin SODIUM 1 GM VIAL ONE (07:48)
[2020-09-12] MEDS ORDERED: PROPOFOL 20 ML ONE ×2 (07:50)
[2020-09-12] MEDS ORDERED: SUCCINYLCHOLINE CHLORIDE 200 MG/10 ML SYRINGE ONE (08:07)
[2020-09-12] MEDS ORDERED: oxyCODONE HCL 5 MG TABLET PO PRN ×2 (08:23→08:27)
[2020-09-12] MEDS ORDERED: ONDANSETRON 4 MG/2 ML VIAL IVPUSH PRN (08:27)
[2020-09-12] MEDS ORDERED: LACTATED RINGERS SOLUTION 1,000 ML IV SCH (08:30)
[2020-09-12] MEDS ORDERED: ELECTROLYTE-148 SOLN 1,000 ML IV SCH (08:30)
[2020-09-12] MEDS ORDERED: oxyCODONE HCL 5 MG TABLET PO ONE (17:11)
[2020-09-12 17:54] VITALS: BP 126/68; PULSE 78; TEMP 98.8
== END 2020-09-12 16:00 | disposition home or self-care (01) ==
LOC: JASU-SURG 04:14
PROVIDERS: ATTEND Urology
PROC: 0VT08ZZ Resection of Prostate, Via Natural or Artificial Opening Endoscopic (ICD-10-PCS; principal; 2020-09-12 07:30)
DX: N40.1 Benign prostatic hyperplasia with lower urinary tract symptoms (principal); R33.8 Other retention of urine
CPT/HCPCS: 82962; 94760

== ENCOUNTER 2021-04-16 05:53 | Inpatient (IN) | payer OTHER ==
[2021-04-16] MEDS ORDERED: PANTOPRAZOLE SODIUM 40 MG VIAL IVPUSH ONE (08:16)
[2021-04-16] MEDS ORDERED: SODIUM CHLORIDE 1,000 ML IV STA ×2 (08:16)
[2021-04-16] MEDS ORDERED: ONDANSETRON 4 MG/2 ML VIAL IVPUSH ONE (08:16)
[2021-04-16] MEDS ORDERED: PANTOPRAZOLE SODIUM 40 MG VIAL ONE (08:31)
[2021-04-16] MEDS ORDERED: ONDANSETRON 4 MG/2 ML VIAL ONE (08:31)
[2021-04-16 09:04] LABS: BASO % 0.3 % (0-2.0); EOS % 0.2 % (0-4.5); HEMATOCRIT 43.9 % (35.4-49); HEMOGLOBIN 14.8 GM/dL (11.7-16.9); LYMPH % 9.1 % (8-40); MCH 27.3 pg (25.7-33.7); MCHC 33.6 g/dl (32.0-35.9); MEAN CELL VOLUME 81.1 fl (80-96); MEAN PLT VOLUME 7.7 fl (7.5-11.1); MONO % 9.1 % (3.8-10.2); NEUT % 81.3 % (42.8-82.8); PLATELET COUNT 323 10^3/uL (134-434); RBC 5.42 M/mm3 (4.00-5.60); RDW 13.2 % (11.9-15.9); WHITE BLOOD COUNT 9.1 K/mm3 (4.0-10.0)
[2021-04-16 09:11] LABS: INR 0.99 (0.83-1.09); PROTHROMBIN TIME (PATIENT) 11.6 SEC (9.7-13.0)
[2021-04-16 09:12] LABS: VENOUS BASE EXCESS -6.7 mmol/L (-2-2); VENOUS O2 SATURATION 87.6 % (70-80); VENOUS PCO2 27.6 mmHg (38-52); VENOUS PH 7.392 (7.310-7.410)
[2021-04-16 09:14] LABS: ACTIVATED PTT 33.4 SECONDS (25.2-36.5)
[2021-04-16 09:22] LABS: CHLORIDE 94 mmol/L (98-107); SODIUM 132 mmol/L (136-145)
[2021-04-16 09:25] LABS: ANION GAP 22 MMOL/L (8-16); CALCIUM 10.2 mg/dL (8.5-10.1); CO2 17 mmol/L (21-32)
[2021-04-16 09:26] LABS: ALBUMIN 3.9 g/dl (3.4-5.0); BLOOD UREA NITROGEN 17.9 mg/dL (7-18); GLUCOSE,RANDOM 340 mg/dL (74-106); LIPASE 216 U/L (73-393); MAGNESIUM 1.7 mg/dL (1.8-2.4)
[2021-04-16 09:28] LABS: PHOSPHOROUS 3.4 mg/dL (2.5-4.9); SGPT/ALT 22 U/L (13-61)
[2021-04-16 09:29] LABS: SGOT/AST 13 U/L (15-37)
[2021-04-16 09:30] LABS: BILIRUBIN,TOTAL 0.8 mg/dL (0.2-1); TOT PROT 8.1 g/dl (6.4-8.2)
[2021-04-16 09:31] LABS: ALK PHOS 105 U/L (45-117)
[2021-04-16] MEDS ORDERED: LACTATED RINGERS SOLUTION 1,000 ML with POTASSIUM CHLORIDE 20 MEQ IV ONE (10:01)
[2021-04-16] MEDS ORDERED: DEXTROSE 50%-WATER - 25 GM/50 ML VIAL IVPUSH PRN (10:01)
[2021-04-16] MEDS ORDERED: INSULIN REGULAR 100 UNITS in SODIUM CHLORIDE 99 ML IVPB SCH (10:30)
[2021-04-16] MEDS ORDERED: SODIUM CHLORIDE 0.9%/KCL 20 MEQ/1,000 ML INFUS.BAG IV ONE (10:45)
[2021-04-16] MEDS ORDERED: PIPERACILLIN/TAZOB 4.5 GM 4.5 GM in DEXTROSE 5%-WATER - 100 ML IVPB ONE (11:39)
[2021-04-16] MEDS ORDERED: VANCOMYCIN 1,000 MG in DEXTROSE 5%-WATER - 250 ML IVPB ONE (11:39)
[2021-04-16] MEDS ORDERED: PIPERACILLIN/TAZOB 4.5 GM 4.5 GM/100 ML BAG IVPB ONE (11:50)
[2021-04-16] MEDS ORDERED: VANCOMYCIN 1 GRAM (PRE-DOCKED) 1,000 MG/250 ML BAG IVPB ONE (11:50)
[2021-04-16 13:03] LABS: EPI CELLS 3 /uL (0-25.1); HYALINE CASTS 1 /uL (0-3.1); URINE APPEARANCE CLEAR; URINE BACTERIA 750 /uL (0-1359); URINE BILIRUBIN NEGATIVE (NEGATIVE); URINE COLOR YELLOW; URINE GLUCOSE (UA) 3+ (NEGATIVE); URINE KETONE 4+ (NEGATIVE); URINE LEUK ESTERASE NEGATIVE (NEGATIVE); URINE NITRITE NEGATIVE (NEGATIVE); URINE PROTEIN 1+ (NEGATIVE); URINE RBC 5 /uL (0-23.9); URINE UROBILINOGEN 0.2 mg/dL (0.2-1.0); URINE WBC 13 /uL (0-25.8)
[2021-04-16 13:12] LABS: CALCIUM 8.8 mg/dL (8.5-10.1)
[2021-04-16 13:13] LABS: BLOOD UREA NITROGEN 17.5 mg/dL (7-18)
[2021-04-16 13:16] LABS: CREATININE 0.9 mg/dL (0.55-1.3)
[2021-04-16] MEDS ORDERED: ACETAMINOPHEN INJECTION 100 ML IVPB ONE ×3 (13:26→20:24)
[2021-04-16] MEDS ORDERED: ACETAMINOPHEN 1000 MG/100 ML BAG IVPB ONE ×2 (13:30→19:31)
[2021-04-16] MEDS ORDERED: MAGNESIUM 2GM/50ML STERILE WATER IVPB IVPB ONE (13:45)
[2021-04-16] MEDS ORDERED: MAGNESIUM SULFATE IN WATER 2 GM/50 ML IVPB IVPB ONE (14:26)
[2021-04-16] MEDS ORDERED: MAGNESIUM SULF 50% (8.12 MEQ/2 ML-1 GM VIAL) IVPB ONE (15:56)
[2021-04-16 16:09] LABS: BLOOD UREA NITROGEN 18.1 mg/dL (7-18); CALCIUM 8.9 mg/dL (8.5-10.1)
[2021-04-16] MEDS ORDERED: INSULIN (LEVEMIR) 100 UNITS/ML UNITS SQ ONE (16:12)
[2021-04-16 16:13] LABS: CREATININE 0.9 mg/dL (0.55-1.3)
[2021-04-16] MEDS: INSULIN SLIDING SCALE (NOVOLOG) 1 VIAL SQ SCH ×2 (18:07→23:39)
[2021-04-16] MEDS ORDERED: AMOX TR/POT CLAV 875MG/125MG TABLETS (FP) ONE (18:47)
[2021-04-16] MEDS: AMOX TR/POT CLAV 875MG/125MG TABLETS (FP) PO SCH (18:54)
[2021-04-16] MEDS ORDERED: CHLORHEXIDINE GLUCONATE 4% CLEANSER FOR DECOLONIZATION TP SCH (22:00)
[2021-04-16] MEDS ORDERED: ROSUVASTATIN CA 20 MG TABLET PO SCH (22:00)
[2021-04-16] MEDS ORDERED: MUPIROCIN 2% TOPICAL OINTMENT FOR DECOLONIZATION NS SCH (22:00)
[2021-04-16] MEDS ORDERED: MELATONIN 1 MG TABLET PO PRN (22:11)
[2021-04-17] MEDS ORDERED: DEXTROSE 50%-WATER - 25 GM/50 ML VIAL IVPUSH PRN (00:15)
[2021-04-17] MEDS: ACETAMINOPHEN 325 MG TABLET (FP) PO PRN ×2 (05:30→17:00)
[2021-04-17] MEDS: INSULIN SLIDING SCALE (NOVOLOG) 1 VIAL SQ SCH ×3 (06:38→16:30)
[2021-04-17] MEDS ORDERED: INSULIN (LEVEMIR) 100 UNITS/ML UNITS SQ SCH ×2 (07:00→22:00)
[2021-04-17] MEDS ORDERED: TAMSULOSIN HCL 0.4 MG CAP PO SCH (08:30)
[2021-04-17] MEDS: AMOX TR/POT CLAV 875MG/125MG TABLETS (FP) PO SCH (08:31)
[2021-04-17] MEDS: TAMSULOSIN HCL 0.4 MG CAP PO SCH (08:32)
[2021-04-17] MEDS ORDERED: PT OWN MED DRAWER 7, Y5N ONE ×2 (09:24→16:09)
[2021-04-17] MEDS: DULoxetine HCL 30 MG CAPSULE.DR PO SCH (09:29)
[2021-04-17] MEDS: ENOXAPARIN NA (PORCINE) 40 MG/0.4 ML DISP.SYRIN SQ SCH (09:30)
[2021-04-17] MEDS: ASPIRIN COATED 81 MG TABLET.EC PO SCH (09:30)
[2021-04-17] MEDS ORDERED: ENOXAPARIN NA (PORCINE) 40 MG/0.4 ML DISP.SYRIN SQ SCH (10:00)
[2021-04-17] MEDS ORDERED: MUPIROCIN 2% TOPICAL OINTMENT FOR DECOLONIZATION NS SCH (10:00)
[2021-04-17] MEDS ORDERED: ASPIRIN COATED 81 MG TABLET.EC PO SCH (10:00)
[2021-04-17] MEDS ORDERED: DULoxetine HCL 30 MG CAPSULE.DR PO SCH (10:00)
[2021-04-17 10:02] LABS: BASO % 0.5 % (0-2.0); EOS % 0.9 % (0-4.5); HEMOGLOBIN 12.6 GM/dL (11.7-16.9); LYMPH % 20.2 % (8-40); MCHC 33.2 g/dl (32.0-35.9); MEAN CELL VOLUME 81.3 fl (80-96); MEAN PLT VOLUME 7.3 fl (7.5-11.1); MONO % 15.3 % (3.8-10.2); NEUT % 63.1 % (42.8-82.8); PLATELET COUNT 264 10^3/uL (134-434); RBC 4.67 M/mm3 (4.00-5.60); RDW 12.9 % (11.9-15.9); WHITE BLOOD COUNT 5.3 K/mm3 (4.0-10.0)
[2021-04-17 10:23] LABS: BLOOD UREA NITROGEN 14.7 mg/dL (7-18); CALCIUM 8.6 mg/dL (8.5-10.1)
[2021-04-17 10:24] LABS: MAGNESIUM 1.8 mg/dL (1.8-2.4)
[2021-04-17 10:26] LABS: CREATININE 0.7 mg/dL (0.55-1.3); PHOSPHOROUS 2.2 mg/dL (2.5-4.9)
[2021-04-17 10:28] LABS: BILIRUBIN,TOTAL 0.6 mg/dL (0.2-1); TOT PROT 6.2 g/dl (6.4-8.2)
[2021-04-17] MEDS ORDERED: INSULIN (NOVOLOG) ASPART 100 UNITS/ML 10ML VIAL ONE (11:41)
[2021-04-17] MEDS ORDERED: DEXTROSE 5%-WATER 100 ML IVPB ONE (12:21)
[2021-04-17] MEDS: CEFTRIAXONE 2 GM in DEXTROSE 5%-WATER 2 GM/100 ML BAG IVPB SCH (12:29)
[2021-04-17] MEDS ORDERED: SODIUM PHOSPHATE - 30 MM in SODIUM CHLORIDE 500 ML IVPB ONE (16:00)
[2021-04-17] MEDS: Insulin (LOG) Aspart 100 UNITS/ML VIAL SQ SCH (19:37)
[2021-04-17] MEDS ORDERED: IBUPROFEN 400 MG TABLET (FP) PO ONE (20:32)
[2021-04-17] MEDS: ROSUVASTATIN CA 20 MG TABLET PO SCH (21:00)
[2021-04-17] MEDS ORDERED: CHLORHEXIDINE GLUCONATE 4% CLEANSER FOR DECOLONIZATION TP SCH (22:00)
[2021-04-17] MEDS ORDERED: MELATONIN 5 MG TABLETS PO ONE (22:20)
[2021-04-17] MEDS ORDERED: oxyCODONE HCL 5 MG TABLET PO ONE (23:17)
[2021-04-18] MEDS ORDERED: oxyCODONE HCL 5 MG TABLET PO ONE (05:30)
[2021-04-18] MEDS: INSULIN (LEVEMIR) 100 UNITS/ML UNITS SQ SCH (06:03)
[2021-04-18] MEDS: INSULIN SLIDING SCALE (NOVOLOG) 1 VIAL SQ SCH ×3 (06:03→16:39)
[2021-04-18 09:31] LABS: BASO % 0.5 % (0-2.0); EOS % 1.8 % (0-4.5); HEMATOCRIT 38.6 % (35.4-49); HEMOGLOBIN 12.9 GM/dL (11.7-16.9); LYMPH % 23.2 % (8-40); MCH 27.1 pg (25.7-33.7); MCHC 33.4 g/dl (32.0-35.9); MEAN CELL VOLUME 81.1 fl (80-96); MEAN PLT VOLUME 7.1 fl (7.5-11.1); MONO % 17.7 % (3.8-10.2); NEUT % 56.8 % (42.8-82.8); PLATELET COUNT 278 10^3/uL (134-434); RBC 4.76 M/mm3 (4.00-5.60); WHITE BLOOD COUNT 4.1 K/mm3 (4.0-10.0)
[2021-04-18] MEDS ORDERED: PT OWN MED DRAWER 7, Y5N ONE ×2 (09:41→12:43)
[2021-04-18] MEDS ORDERED: DEXTROSE 5%-WATER 100 ML IVPB ONE (09:42)
[2021-04-18] MEDS: DULoxetine HCL 30 MG CAPSULE.DR PO SCH (09:45)
[2021-04-18] MEDS: TAMSULOSIN HCL 0.4 MG CAP PO SCH (09:45)
[2021-04-18] MEDS: CEFTRIAXONE 2 GM in DEXTROSE 5%-WATER 2 GM/100 ML BAG IVPB SCH (09:46)
[2021-04-18] MEDS: ASPIRIN COATED 81 MG TABLET.EC PO SCH (09:46)
[2021-04-18] MEDS: ENOXAPARIN NA (PORCINE) 40 MG/0.4 ML DISP.SYRIN SQ SCH (09:47)
[2021-04-18 09:54] LABS: ALBUMIN 3.1 g/dl (3.4-5.0); BLOOD UREA NITROGEN 16.2 mg/dL (7-18); CALCIUM 8.7 mg/dL (8.5-10.1)
[2021-04-18 09:55] LABS: MAGNESIUM 1.7 mg/dL (1.8-2.4)
[2021-04-18 09:57] LABS: CREATININE 0.7 mg/dL (0.55-1.3); PHOSPHOROUS 2.8 mg/dL (2.5-4.9)
[2021-04-18 09:59] LABS: BILIRUBIN,TOTAL 0.4 mg/dL (0.2-1); TOT PROT 6.3 g/dl (6.4-8.2)
[2021-04-18] MEDS: ACETAMINOPHEN 325 MG TABLET (FP) PO PRN (10:03)
[2021-04-18] MEDS ORDERED: INSULIN (NOVOLOG) ASPART 100 UNITS/ML 10ML VIAL ONE (11:20)
[2021-04-18] MEDS ORDERED: OXYMETAZOLINE 0.05% NASAL SOLUTION 15 ML BOTTLE NS ONE (12:00)
[2021-04-18] MEDS: FINASTERIDE 5 MG TABLET (FP) PO SCH (18:55)
[2021-04-18] MEDS ORDERED: INSULIN (LEVEMIR) 100 UNITS/ML UNITS SQ SCH (18:58)
[2021-04-18] MEDS: traMADol HCL 50 MG TABLET PO PRN (20:55)
[2021-04-18] MEDS: ROSUVASTATIN CA 20 MG TABLET PO SCH (21:01)
[2021-04-18] MEDS: FLUTICASONE PROP 0.05% 16 GM NASAL SPRAY NS SCH (21:54)
[2021-04-18] MEDS ORDERED: MAGNESIUM 2GM/50ML STERILE WATER IVPB IVPB ONE (22:00)
[2021-04-19] MEDS: traMADol HCL 50 MG TABLET PO PRN (05:52)
[2021-04-19] MEDS: INSULIN (LEVEMIR) 100 UNITS/ML UNITS SQ SCH (06:02)
[2021-04-19] MEDS: INSULIN SLIDING SCALE (NOVOLOG) 1 VIAL SQ SCH ×3 (06:02→17:19)
[2021-04-19 08:32] LABS: BASO % 0.7 % (0-2.0); EOS % 1.9 % (0-4.5); HEMATOCRIT 39.8 % (35.4-49); HEMOGLOBIN 13.8 GM/dL (11.7-16.9); LYMPH % 22.5 % (8-40); MCH 27.8 pg (25.7-33.7); MCHC 34.6 g/dl (32.0-35.9); MEAN CELL VOLUME 80.3 fl (80-96); MEAN PLT VOLUME 6.8 fl (7.5-11.1); MONO % 16.1 % (3.8-10.2); NEUT % 58.8 % (42.8-82.8); PLATELET COUNT 283 10^3/uL (134-434); RBC 4.96 M/mm3 (4.00-5.60); RDW 13.1 % (11.9-15.9)
[2021-04-19] MEDS ORDERED: DEXTROSE 5%-WATER 100 ML IVPB ONE (09:00)
[2021-04-19] MEDS: FINASTERIDE 5 MG TABLET (FP) PO SCH (09:07)
[2021-04-19] MEDS: CEFTRIAXONE 2 GM in DEXTROSE 5%-WATER 2 GM/100 ML BAG IVPB SCH (09:07)
[2021-04-19] MEDS: ASPIRIN COATED 81 MG TABLET.EC PO SCH (09:07)
[2021-04-19] MEDS: DULoxetine HCL 30 MG CAPSULE.DR PO SCH (09:07)
[2021-04-19 09:08] LABS: ALBUMIN 3.3 g/dl (3.4-5.0)
[2021-04-19] MEDS: ENOXAPARIN NA (PORCINE) 40 MG/0.4 ML DISP.SYRIN SQ SCH (09:08)
[2021-04-19] MEDS: TAMSULOSIN HCL 0.4 MG CAP PO SCH (09:08)
[2021-04-19 09:09] LABS: BLOOD UREA NITROGEN 14.9 mg/dL (7-18)
[2021-04-19 09:11] LABS: CREATININE 0.8 mg/dL (0.55-1.3)
[2021-04-19 09:13] LABS: BILIRUBIN,TOTAL 0.4 mg/dL (0.2-1); TOT PROT 6.8 g/dl (6.4-8.2)
[2021-04-19] MEDS: FLUTICASONE PROP 0.05% 16 GM NASAL SPRAY NS SCH (09:22)
[2021-04-19] MEDS ORDERED: LISINOPRIL 5 MG TABLET PO SCH (10:00)
[2021-04-19] MEDS ORDERED: INSULIN (NOVOLOG) ASPART 100 UNITS/ML 10ML VIAL ONE ×2 (11:45→17:21)
[2021-04-19 15:51] VITALS: BP 148/92; PULSE 89; TEMP 98.3
[2021-04-20 18:51] VITALS: BMI 30.8
== END 2021-04-19 18:15 | disposition home or self-care (01) | DRG 638 ==
LOC: JER 05:53 → JERBED 10:02 → J8W 22:26
PROVIDERS: ADMIT Internal Medicine; ATTEND Internal Medicine
DX: E11.10 Type 2 diabetes mellitus with ketoacidosis without coma (principal); S02.30XA Fracture of orbital floor, unspecified side, initial encounter for closed fracture; S22.39XA Fracture of one rib, unspecified side, initial encounter for closed fracture; H70.91 Unspecified mastoiditis, right ear; J32.4 Chronic pansinusitis; E86.0 Dehydration; E83.42 Hypomagnesemia; E83.52 Hypercalcemia; X58.XXXA Exposure to other specified factors, initial encounter; Y93.9 Activity, unspecified; Y92.89 Other specified places as the place of occurrence of the external cause; Y99.8 Other external cause status
CPT/HCPCS: 36415; 70450-TC; 70552-TC; 71045-TC-FY; 74177-TC; 80048; 80053; 81003; 82010; 82550; 82570; 82803; 82962; 83036; 83605; 83690; 83735; 84100; 84156; 84439; 84443; 84481; 84484; 85025; 85610; 85730; 86850; 86900; 86901; 87040; 87086; 87804; 87807; 93005; 93010; 99291; 99292; C9803; J0131; Q9967; U0003; U0005

== ENCOUNTER 2021-10-02 16:52 | Emergency (ER) | payer OTHER ==
[2021-10-02 17:07] VITALS: BP 127/73; PULSE 88; TEMP 98.1; BMI 35.2
== END 2021-10-02 19:35 | disposition home or self-care (01) ==
LOC: JERFT 16:52
DX: M25.552 Pain in left hip (principal)
CPT/HCPCS: 72170-TC-FY; 73502-TC-LT-FY; 93971-TC; 99285-25